=== PATIENT | female | born 1945 | race Caucasian/White ===

== ENCOUNTER 2017-12-25 07:51 | Outpatient (CLI) | payer MEDICARE ==
--- NOTE | 2017-12-25 09:07 | MRI ---
MRI BRAIN WITHOUT CONTRAST: DATE: 12/25/17. COMPARISON: 09/22/16. HISTORY: Fall 4 weeks ago, headaches, nausea. TECHNIQUE: Multiplanar, multisequence MR imaging of the brain is obtained without contrast. FINDINGS: The diffusion weighted imaging demonstrates no evidence for acute infarction. The axial gradient echo imaging demonstrates no evidence for intracranial hemorrhage. There are a few scattered subcentimeter foci of increased T2 and FLAIR signal within the white matter suggesting minimal small-vessel disease. The imaged paranasal sinuses and mastoid air cells are unr emarkable. Arterial flow voids at axial level of the skull base appear grossly unremarkable on the T2 weighted i maging. Regional bone marrow signal intensity is within normal limits. No midline shift, mass effec t, or ventricular enlargement. IMPRESSION: No acute findings. POS: MANDIEH
== END 2017-12-25 07:52 | disposition home or self-care (01) ==
LOC: MRI 07:51
PROVIDERS: ATTEND Psychiatry & Neurology Neurology
DX: G31.84 Mild cognitive impairment of uncertain or unknown etiology (principal)
CPT/HCPCS: 70551

== ENCOUNTER 2018-11-18 05:58 | Day surgery (SDC) | payer MEDICARE ==
[2018-11-17 17:56] VITALS: BMI 27.4
[~2018-11-18 05:58] MED LIST: Cyclopentolate 1% Opth Drop 2 ML BOT FS SCH; Fluorouracil 100 MG, Enoxaparin Sodium 25 MG, EPINEPHrine 0.3 MG in Ophthalmic Irrigati... FS SCH; Phenylephrine 2.5% Ophth Soln 5 ML BOT FS SCH
[2018-11-18] MEDS ORDERED: Cyclopentolate 1% Opth Drop 2 ML BOT ONE (06:19)
[2018-11-18] MEDS ORDERED: Phenylephrine 2.5% Ophth Soln 5 ML BOT ONE (06:19)
[2018-11-18] MEDS ORDERED: Ondansetron PF 4 MG/2 ML Vial ONE ×2 (06:44→16:18)
[2018-11-18] MEDS ORDERED: Midazolam HCl 2 mg/2 ml Vial ONE (06:44)
[2018-11-18] MEDS ORDERED: Fentanyl 100 MCG/2 ML VIAL ONE (06:44)
[2018-11-18] MEDS ORDERED: PROPOFOL 40 ML ONE (06:53)
--- NOTE | 2018-11-18 08:18 | OP ---
DATE OF PROCEDURE: 11/18/2018 PREOPERATIVE DIAGNOSIS: Macular hole, right eye. POSTOPERATIVE DIAGNOSIS: Macular hole, right eye. PROCEDURE PERFORMED: Pars plana vitrectomy and internal limiting membrane peel, right eye. ANESTHESIA: Local with monitored anesthesia care. DESCRIPTION OF PROCEDURE: The patient was identified in the preoperative holding area. Appropriate informed consent for the planned surgical procedure on the right eye had been obtained. The patient was transported to the operative suite, where appropriate cardiopulmonary monitoring was established. Local anesthesia was obtained using retrobulbar block modified Van Lint lid block using 50:50 mixture of 4% lidocaine and 0.75% bupivacaine. The patient was prepped and draped in usual sterile manner for ophthalmic surgery of right eye. Lid speculum was placed in the right eye. A 25-gauge trocar was placed through the conjunctiva and sclera superotemporally, inferotemporally, and superonasally. Infusion line was placed inferotemporally. Light pipe and vitreous cutter were inserted into the eye. Core vitrectomy was performed. Posterior hyaloid face was elevated and peeled into the retinal periphery using vacuum suction. Indocyanine green dye was infused on the posterior pole x1 identifying the internal limiting membrane. This was elevated using a membrane scraper and peeled across the macula with end-gripping forceps. Indirect ophthalmoscopy was used to examine the retina 360 degrees. No holes, breaks, or tears were identified. Complete air-fluid exchange was performed and 10 minutes being left for fluid to drain posteriorly. A 28% sulfur hexafluoride gas was infused into the eye. Trocars were removed. The eye was noted to retain pressure well. Retrobulbar Kenalog and subconjunctival Ancef were placed. Atropine antibiotic ointment was placed and the eye was patched and shielded. The patient was taken to the postoperative recovery unit in good condition, having suffered no immediate perioperative complications. The patient was instructed to keep the patch and shield on, avoid lifting or bending, avoid flat and back positioning. Followup in the morning with Dr. Hopson. Job ID: [id number]
[2018-11-18] MEDS ORDERED: PROPOFOL 200 MG/20 ML VIAL ONE (16:18)
[2018-11-18] MEDS ORDERED: Triamcinolone 40 MG/ML VIAL ONE (16:18)
[2018-11-18] MEDS ORDERED: Bupivacaine 0.75% 10 ML AMP ONE (16:18)
[2018-11-18] MEDS ORDERED: Lidocaine 4% PF 5 ML AMP ONE (16:18)
[2018-11-18] MEDS ORDERED: CEFAZOLIN 1 GM VIAL ONE (16:18)
[2018-11-18] MEDS ORDERED: Indocyanine Green 25 MG/10 ML VIAL ONE (16:18)
[2018-11-18] MEDS ORDERED: Maxitrol 0.1% Opth Oint 3.5 GM TUBE ONE (16:18)
[2018-11-18] MEDS ORDERED: Lidocaine 1% PF 5 ML VIAL ONE (16:18)
== END 2018-11-18 08:44 | disposition home or self-care (01) ==
LOC: SDC 05:58
PROVIDERS: ATTEND Ophthalmology Retina Specialist
PROC: 08T43ZZ Resection of Right Vitreous, Percutaneous Approach (ICD-10-PCS; principal; 2018-11-18)
PROC: 08NE3ZZ Release Right Retina, Percutaneous Approach (ICD-10-PCS; 2018-11-18)
DX: H35.341 Macular cyst, hole, or pseudohole, right eye (principal); Z79.899 Other long term (current) drug therapy
CPT/HCPCS: 67025; J0171; J0690; J1650; J2001; J2250; J2405; J2704; J3010; J3301; J3490; J9190

== ENCOUNTER 2025-06-03 08:33 | Emergency (ER) | payer OTHER ==
[2025-06-03 09:13] LABS: #Basophils 0.06 10x3/uL (0.0-0.2); #Eosinophils 0.18 10x3/uL (0.0-0.7); #Monocytes 0.28 10x3/uL (0.11-0.59); #Neutrophils 3.76 10x3/uL (1.40-6.50); %Basophils 1.1 % (0.0-1.0); %Eosinophils 3.4 % (0.0-10.0); %Lymphocytes 18.6 % (21.0-51.0); %Monocytes 5.3 % (0.0-10.0); %Neutrophils 71.2 % (42.0-75.0); Hematocrit 39.7 % (36.0-47.0); Hemoglobin 12.8 g/dL (12.0-16.0); Mean Corpuscular Hemoglobin 30.7 pg (27.0-31.0); Mean Corpuscular Volume 95.2 fL (78.0-98.0); Platelet Count 311 10x3/uL (130-400); Red Blood Cell (RBC) Count 4.17 mill/uL (4.20-5.40); White Blood Cell (WBC) Count 5.28 10x3/uL (4.8-10.8)
[2025-06-03 10:30] LABS: ALT (SGPT) Less than 7 U/L (Less than 34); AST (SGOT) 11 U/L (11-34); Albumin 3.4 g/dL (3.1-4.5); Alkaline Phosphatase 124 U/L (40-110); Anion Gap 17 mmol/L (10-20); BUN (Urea Nitrogen) 9 mg/dL (9.8-20.1); Bilirubin, Total 0.4 mg/dL (0.3-1.2); Calc. Creatinine Clearance 0 mL/min (70-130); Calcium 8.1 mg/dL (7.8-10.44); Carbon Dioxide 23 mmol/L (23-31); Chloride 110 mmol/L (98-107); Globulin 3.0 g/dL (2.4-3.5); Glucose 95 mg/dL (83-110); Potassium 3.5 mmol/L (3.5-5.1); Sodium 146 mmol/L (136-145)
[2025-06-03 13:21] LABS: CAUTI Indications for Culture Alt mental st,lethar; Glucose, Urine (Dipstick) Normal (Negative); Leukocyte Negative Leu/uL (Negative); Protein, Urine (Dipstick) Negative (Neg-Trace); RBC/HPF 0-3 HPF (0-3); Specific Gravity, Urine 1.009 (1.002-1.036); WBC/HPF 0-3 HPF (0-3)
[2025-06-03 13:26] LABS: Bacteria/HPF 1+ HPF (None Seen); Urine Culture Reflex No No
== END 2025-06-03 14:20 | disposition home or self-care (01) ==
LOC: ERS 08:33
DX: R56.9 Unspecified convulsions (principal); E86.0 Dehydration; F03.90 Unspecified dementia, unspecified severity, without behavioral disturbance, psychotic disturbance, mood disturbance, and anxiety
CPT/HCPCS: 36415; 51701; 70450; 71045; 80053; 81001; 85025; 93005